=== PATIENT | female | born 1950 | race African-American/Black ===

== ENCOUNTER 2017-03-19 07:55 | Inpatient (IN) | payer OTHER ==
[2017-03-19] MEDS ORDERED: Adacel (T-DAP) 0.5 ML VIAL ONE (09:00)
[2017-03-19] MEDS ORDERED: Lidocaine 1% w/Epinephrine 1:200K 30 ML VIAL ONE (09:00)
[2017-03-19] MEDS ORDERED: Ondansetron HCl/PF 4 MG/2 ML Vial ONE ×2 (09:13→14:50)
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
[2017-03-19 09:57] LABS: Prothrombin Time 13.9 SEC (12.0-14.7)
[2017-03-19 10:06] LABS: PTT 21.2 SEC (22.9-36.1)
[2017-03-19 10:15] LABS: Band 14 % (5-11); Hematocrit 38.9 % (36.0-47.0); Mean Platelet Volume 7.4 fL (7.4-10.4); Neutrophil 69 % (42-75); Red Blood Cell (RBC) Count 4.23 mill/uL (4.20-5.40); White Blood Cell (WBC) Count 24.3 thou/uL (4.8-10.8)
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
[2017-03-19 10:51] LABS: ALT (SGPT) 53 U/L (8-55); AST (SGOT) 74 U/L (5-34); Alkaline Phosphatase 75 U/L (40-150); Anion Gap 18 mmol/L (10-20); BUN (Urea Nitrogen) 15 mg/dL (9.8-20.1); Bilirubin, Total 0.4 mg/dL (0.2-1.2); Calc. Creatinine Clearance 0 mL/min (70-130); Calcium 9.2 mg/dL (7.8-10.44); Carbon Dioxide 18 mmol/L (23-31); Chloride 106 mmol/L (98-107); Estimated GFR-MDRD 81; Globulin 3.4 g/dL (2.4-3.5); Protein, Total 7.1 g/dL (6.0-8.3)
[2017-03-19] MEDS ORDERED: Bacitracin Zinc 1 Packet ONE (10:56)
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
[2017-03-19] MEDS ORDERED: Midazolam HCl 2 mg/2 ml Vial ONE (14:14)
[2017-03-19] MEDS ORDERED: Fentanyl 100 MCG/2 ML VIAL ONE ×2 (14:14→14:40)
[2017-03-19] MEDS ORDERED: Zolpidem Tartrate 5 MG TAB PO PRN (14:33)
[2017-03-19] MEDS ORDERED: HYDROcodone/Acetaminophen 10/325 mg Tablet PO PRN (14:33)
[2017-03-19] MEDS ORDERED: Ropivacaine 0.2% 550 ML 550 ML NERVE BLCK SCH (14:33)
[2017-03-19] MEDS ORDERED: Fentanyl 100 MCG/2 ML VIAL SLOW IVP PRN (14:33)
[2017-03-19] MEDS ORDERED: traMADol HCl 50 MG TAB PO PRN ×2 (14:33)
[2017-03-19] MEDS ORDERED: Promethazine HCl 25 MG/ML VIAL IM PRN ×2 (14:33→17:34)
[2017-03-19] MEDS ORDERED: Ondansetron HCl/PF 4 MG/2 ML Vial IVP PRN ×3 (14:33→18:55)
[2017-03-19] MEDS ORDERED: PHENYLEPHRINE-NS 100 MCG/ML 10 ML SYRINGE ONE (14:50)
[2017-03-19] MEDS ORDERED: ePHEDrine/0.9% NaCl/PF SYRINGE 50 mg/10 ml ONE ×2 (14:50)
[2017-03-19] MEDS ORDERED: Propofol 200 MG/20 ML VIAL ONE ×2 (14:50)
[2017-03-19] MEDS ORDERED: Metoclopramide HCl 10 MG/2 ML VIAL ONE (14:50)
[2017-03-19] MEDS ORDERED: Lidocaine 1% PF 5 ML VIAL ONE (14:50)
[2017-03-19] MEDS ORDERED: Succinylcholine Chloride 20 MG/ML 10 ml SYRINGE FS ONE (14:50)
[2017-03-19] MEDS ORDERED: Dexamethasone 20 MG/5 ML VIAL ONE (14:50)
[2017-03-19] MEDS ORDERED: ISOVUE-370 76%-LOCM 1 ML ONE (16:25)
[2017-03-19] MEDS ORDERED: Promethazine HCl 25 MG/ML VIAL SLOW IVP PRN (17:34)
[2017-03-19] MEDS ORDERED: Morphine Sulfate 2 MG/ML SYRINGE SLOW IVP PRN (17:34)
[2017-03-19] MEDS ORDERED: Meperidine HCl/PF 25 MG/ML VIAL SLOW IVP PRN (17:34)
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
[2017-03-19] MEDS ORDERED: Promethazine HCl 25 MG/ML VIAL ONE (17:42)
[2017-03-19] MEDS ORDERED: Dextrose 5% in Water 1,000 ML IV PRN (18:55)
[2017-03-19] MEDS ORDERED: Morphine Sulfate 2 MG/ML SYRINGE IVP PRN (18:55)
[2017-03-19] MEDS ORDERED: Ondansetron ODT 4 MG TAB PO PRN (18:55)
[2017-03-19] MEDS ORDERED: Dextrose 50% Abboject 50 ML SYRINGE SLOW IVP PRN (18:55)
[2017-03-19 19:01] VITALS: BMI 22.8
[2017-03-19] MEDS: Famotidine 20 MG TAB PO SCH (20:11)
[2017-03-19] MEDS: Sodium Chloride 0.9% 1,000 ML IV SCH (20:24)
[2017-03-20] MEDS: Sodium Chloride 0.9% 1,000 ML IV SCH (04:13)
[2017-03-20 05:27] LABS: #Lymphocytes 1.5 thou/uL (1.20-3.40); #Monocytes 1.3 thou/uL (0.11-0.59); %Basophils 0.1 % (0.0-1.0); %Eosinophils 0.1 % (0.0-10.0); %Lymphocytes 12.5 % (21.0-51.0); %Monocytes 10.7 % (0.0-10.0); Hematocrit 31.8 % (36.0-47.0); Mean Platelet Volume 7.8 fL (7.4-10.4); Red Blood Cell (RBC) Count 3.47 mill/uL (4.20-5.40); White Blood Cell (WBC) Count 11.8 thou/uL (4.8-10.8)
[2017-03-20 05:43] LABS: Anion Gap 11 mmol/L (10-20); BUN (Urea Nitrogen) 11 mg/dL (9.8-20.1); Calc. Creatinine Clearance 84 mL/min (70-130); Calcium 8.6 mg/dL (7.8-10.44); Carbon Dioxide 25 mmol/L (23-31); Chloride 105 mmol/L (98-107); Estimated GFR-MDRD Greater than 90
--- NOTE | 2017-03-20 07:35 | RAD ---
CHEST INSPIRATORY AND EXPIRATORY VIEWS: History: Pneumothorax. Follow up. Comparison: 03-19-17 FINDINGS: Cardiac silhouette is magnified by projection. Pulmonary vasculature is unremarkable. Mediastinum is midline. Mild bibasilar atelectasis is apparent. The tiny left apical pneumothorax on recent CT is not apparent on this exam. IMPRESSION: 1. No radiographic evidence of residual pneumothorax. 2. Mild bibasilar atelectasis. POS: [facility]
[2017-03-20] MEDS: HYDROcodone/Acetaminophen 10/325 mg Tablet PO PRN ×2 (08:38→20:54)
[2017-03-20] MEDS: Famotidine 20 MG TAB PO SCH ×2 (08:38→20:54)
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
[2017-03-21] MEDS ORDERED: Docusate 100 MG CAP PO SCH (09:00)
[2017-03-21] MEDS: Famotidine 20 MG TAB PO SCH (09:16)
[2017-03-21 12:01] VITALS: BP 146/77; TEMP 99.2
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
== END 2017-03-21 15:05 | disposition home or self-care (01) | DRG 958 ==
LOC: ERS 07:55 → SDC 11:08 → OBSVTOIN 11:44 → SURG A 11:44
PROVIDERS: ADMIT Surgery; ATTEND Surgery
PROC: 0PSD04Z Reposition Left Humeral Head with Internal Fixation Device, Open Approach (ICD-10-PCS; principal; 2017-03-19)
PROC: 0PSL04Z Reposition Left Ulna with Internal Fixation Device, Open Approach (ICD-10-PCS; 2017-03-19)
PROC: 0PSG04Z Reposition Left Humeral Shaft with Internal Fixation Device, Open Approach (ICD-10-PCS; 2017-03-19)
PROC: 3E0T3BZ Introduction of Anesthetic Agent into Peripheral Nerves and Plexi, Percutaneous Approach (ICD-10-PCS; 2017-03-19)
PROC: 0HQLXZZ Repair Left Lower Leg Skin, External Approach (ICD-10-PCS; 2017-03-19)
PROC: 0HQ1XZZ Repair Face Skin, External Approach (ICD-10-PCS; 2017-03-19)
DX: S42.452B Displaced fracture of lateral condyle of left humerus, initial encounter for open fracture (principal); S27.0XXA Traumatic pneumothorax, initial encounter; J98.11 Atelectasis; S52.022B Displaced fracture of olecranon process without intraarticular extension of left ulna, initial encounter for open fracture type I or II; S81.012A Laceration without foreign body, left knee, initial encounter; I10 Essential (primary) hypertension; S01.81XA Laceration without foreign body of other part of head, initial encounter; V49.40XA Driver injured in collision with unspecified motor vehicles in traffic accident, initial encounter; Y92.410 Unspecified street and highway as the place of occurrence of the external cause; G89.11 Acute pain due to trauma; E78.5 Hyperlipidemia, unspecified; S51.812A Laceration without foreign body of left forearm, initial encounter; Z23 Encounter for immunization; S01.511A Laceration without foreign body of lip, initial encounter; S01.422A Laceration with foreign body of left cheek and temporomandibular area, initial encounter
CPT/HCPCS: 12004; 12014; 36415; 70450; 70486; 71010; 71260; 72125; 74177; 76001; 80048; 80053; 84703; 85025; 85610; 85730; 86850; 86900; 86901; 90471; 90715; 96374; 96375; A4306; C1713; G0390; G8978-GP-CL; G8979-GP-CJ; G8987-GO-CL; G8988-GO-CJ; J1100; J2001; J2250; J2270; J2405; J2550; J2704; J2765; J2795; J3010

== ENCOUNTER 2017-04-17 10:11 | Emergency (ER) | payer OTHER ==
[2017-04-17] MEDS ORDERED: Lidocaine Viscous Sol 2% 15 ml UD Cup ONE (12:58)
== END 2017-04-17 13:19 | disposition home or self-care (01) ==
LOC: ERS 10:11
DX: S01.511D Laceration without foreign body of lip, subsequent encounter (principal); E78.5 Hyperlipidemia, unspecified; I10 Essential (primary) hypertension; Z79.891 Long term (current) use of opiate analgesic; X58.XXXD Exposure to other specified factors, subsequent encounter